=== PATIENT | female | born 1995 | race Caucasian/White ===

== ENCOUNTER 2017-08-28 18:52 | Emergency (ER) | payer OTHER ==
[~2017-08-28] VITALS: Ht 154.9 cm; Wt 78.2 kg
[2017-08-28] MEDS ORDERED: ALBUTEROL/IPRATROPIUM 2.5MG/0.5MG, 3 ML ONE (19:35)
[2017-08-28] MEDS ORDERED: ALBUTEROL SULFATE 2.5 MG/3 ML NPPB ONE (20:00)
[2017-08-28 20:17] VITALS: BP 119/74
== END 2017-08-28 20:19 | disposition home or self-care (01) ==
LOC: ED 20:15
DX: J20.8 Acute bronchitis due to other specified organisms (principal)
CPT/HCPCS: 71020; 94640; 99284; J7512

== ENCOUNTER 2018-10-18 19:01 | Emergency (ER) | payer SELFPAY ==
[~2018-10-18] VITALS: Ht 154.9 cm; Wt 75.0 kg
[2018-10-18 19:08] VITALS: BP 121/70
[2018-10-18] MEDS ORDERED: HYDROcodone/APAP 5/325 TABLET ONE (19:40)
[2018-10-18] MEDS ORDERED: KETOROLAC 30 MG/1 ML ONE (19:40)
[2018-10-18] MEDS ORDERED: DIAZEPAM 5 MG TABLET ONE (19:40)
[2018-10-18] MEDS ORDERED: HYDROcodone/APAP 5/325 TABLET PO ONE (20:00)
[2018-10-18] MEDS ORDERED: DIAZEPAM 5 MG TABLET PO ONE (20:00)
[2018-10-18] MEDS ORDERED: KETOROLAC 30 MG/1 ML IM ONE (20:00)
== END 2018-10-18 20:53 | disposition home or self-care (01) ==
LOC: ED 19:37
DX: S93.402A Sprain of unspecified ligament of left ankle, initial encounter (principal); X50.1XXA Overexertion from prolonged static or awkward postures, initial encounter; Y93.89 Activity, other specified; Y92.89 Other specified places as the place of occurrence of the external cause; Y99.8 Other external cause status
CPT/HCPCS: 29515; 73610; 73630; 96372; 99283; J1885

== ENCOUNTER 2020-11-29 18:17 | Inpatient (IN) | payer OTHER ==
[~2020-11-29] VITALS: Ht 154.9 cm; Wt 81.4 kg
[2020-11-29 18:29] VITALS: BP 97/60
[2020-11-29] MEDS ORDERED: PREN1TAB60 PO (18:53)
[2020-11-29 20:00] VITALS: BP 95/58
[2020-11-29] MEDS: LACTATED RINGERS 1,000 ML IV SCH (20:00)
[2020-11-29] MEDS ORDERED: CALCIUM CARBONATE 500 MG TAB.CHEW PO PRN (20:30)
[2020-11-29] MEDS ORDERED: SODIUM CITRATE/CITRIC ACID 30 ML UDC PO PRN (20:30)
[2020-11-29] MEDS: D5%-LACTATED RINGERS 1,000 ML IV SCH (20:30)
[2020-11-29] MEDS ORDERED: OXYTOCIN 30U/ 0.9% NaCL 500ML 500 ML IV ONE (20:30)
[2020-11-29] MEDS ORDERED: TERBUTALINE 1 MG/ML, 1ML IVPush PRN (20:30)
[2020-11-29] MEDS ORDERED: TERBUTALINE 1 MG/ML, 1ML SQ PRN (20:30)
[2020-11-29] MEDS ORDERED: METOCLOPRAMIDE 5 MG/ML, 2ML IVPush PRN (20:30)
[2020-11-29] MEDS ORDERED: FENTANYL PF 100 MCG/2ML IV PRN (20:30)
[2020-11-29] MEDS ORDERED: MISOPROSTOL 25 MCG TABLET ONE (20:37)
[2020-11-29] MEDS ORDERED: NEWBORN KIT ONE (20:37)
[2020-11-29] MEDS ORDERED: LIDOCAINE 1%, 20ML ONE (20:37)
[2020-11-29] MEDS ORDERED: OXYTOCIN 30U/ 0.9% NaCL 500ML 500 ML ONE (20:38)
[2020-11-29] MEDS ORDERED: MISOPROSTOL 200 MCG TABLET ONE (20:38)
[2020-11-29] MEDS: MISOPROSTOL 25 MCG TABLET VG PRN (20:53)
[2020-11-29 20:56] LABS: BASOPHILS % (AUTO) 1 % (0-1); EOSINOPHILS % (AUTO) 0 % (1-7); LYMPHOCYTES % (AUTO) 22 % (22-44); MEAN CORPUSCULAR HEMOGLOBIN 32.3 pg (27.0-34.8); MEAN CORPUSCULAR HGB CONC 34.6 g/dL (32.4-35.8); MEAN PLATELET VOLUME 9.3 fL (7.4-10.4); MONOCYTES % (AUTO) 6 % (2-9); NEUTROPHILS % (AUTO) 71 % (42-75); PLATELET COUNT 211 x10^3/uL (130-400); RED BLOOD COUNT 4.14 x10^6/uL (3.82-5.3); RED CELL DISTRIBUTION WIDTH 12.7 % (9.6-15.2)
[2020-11-29 21:02] LABS: MD NO
[2020-11-30] MEDS ORDERED: MISOPROSTOL 25 MCG TABLET ONE (01:02)
[2020-11-30] MEDS: MISOPROSTOL 25 MCG TABLET VG PRN (01:05)
[2020-11-30] MEDS: D5%-LACTATED RINGERS 1,000 ML IV SCH ×3 (04:30→23:55)
[2020-11-30] MEDS: LACTATED RINGERS 1,000 ML IV SCH ×3 (04:30→22:21)
[2020-11-30] MEDS ORDERED: OXYTOCIN 30U/ 0.9% NaCL 500ML 500 ML IV PRN (06:30)
[2020-11-30] MEDS ORDERED: FENTANYL PF 100 MCG/2ML ONE ×2 (14:12→15:17)
[2020-11-30] MEDS: FENTANYL PF 100 MCG/2ML IVPush PRN ×2 (14:15→15:21)
[2020-11-30] MEDS ORDERED: ONDANSETRON 2MG/ML, 2ML ONE ×2 (15:08→20:53)
[2020-11-30] MEDS: ONDANSETRON 2MG/ML, 2ML IVPush PRN ×2 (15:11→20:55)
[2020-11-30] MEDS ORDERED: BUPIVACAINE 0.25% ONE (16:04)
[2020-11-30] MEDS ORDERED: FENTANYL/BUPIV./NS/PF 250 ML EPIDCONT ONE (16:05)
[2020-11-30] MEDS ORDERED: FENTANYL/BUPIV./NS/PF 250 ML EPIDCONT SCH (17:00)
[2020-11-30] MEDS ORDERED: LACTATED RINGERS 1,000 ML IV SCH (17:00)
[2020-11-30] MEDS ORDERED: LACTATED RINGERS 1,000 ML IVBOLUS PRN (17:00)
[2020-11-30] MEDS: EPHEDRINE 50 MG/ML, 1ML IVPush PRN ×2 (17:04→23:50)
[2020-11-30 19:16] VITALS: BP 93/54
[2020-12-01] MEDS ORDERED: OXYTOCIN 30U/ 0.9% NaCL 500ML 500 ML ONE (07:07)
[2020-12-01] MEDS ORDERED: ACETAMINOPHEN 325 MG TABLET ONE (07:07)
[2020-12-01] MEDS ORDERED: ACETAMINOPHEN 500 MG TABLET ONE (07:12)
[2020-12-01] MEDS: AMPICILLIN 2 GM in SODIUM CHLORIDE 0.9% 100 ML IV SCH ×3 (07:18→19:27)
[2020-12-01] MEDS ORDERED: PHARMACOKINETIC MONITORING MC PRN (07:30)
[2020-12-01] MEDS ORDERED: ACETAMINOPHEN 325 MG TABLET PO PRN ×2 (07:30→08:00)
[2020-12-01] MEDS ORDERED: PHARMACOKINETIC CONSULTATION MC ONE (07:30)
[2020-12-01] MEDS ORDERED: GENTAMICIN PER PHARMACY MC PRN (07:30)
[2020-12-01] MEDS ORDERED: ACETAMINOPHEN 500 MG TABLET PO PRN (07:30)
[2020-12-01] MEDS: GENTAMICIN 100 MG in SODIUM CHLORIDE 0.9% 50 ML IV SCH ×3 (07:44→23:39)
[2020-12-01 07:56] LABS: AMPHETAMINE SCREEN, URINE Negative (Negative); BARBITURATE SCREEN, URINE Negative (Negative); BENZODIAZEPINE SCREEN, URINE Negative (Negative); CANNABINOID SCREEN, URINE Negative (Negative); COCAINE SCREEN, URINE Negative (Negative); METHADONE SCREEN, URINE Negative (Negative); OPIATE SCREEN, URINE Negative (Negative)
[2020-12-01] MEDS ORDERED: RHOGAM FROM BLOOD BANK 1 NOTE EA IM/IV ONE (08:00)
[2020-12-01] MEDS ORDERED: MAGNESIUM HYDROXIDE 8%, 30ML UDC PO PRN (08:00)
[2020-12-01] MEDS: OXYTOCIN 30U/ 0.9% NaCL 500ML 500 ML IV SCH ×2 (08:00→18:00)
[2020-12-01] MEDS ORDERED: DIPH,PERTUSS(ACELL),TET VAC/PF NC IM-VACC PRN (08:00)
[2020-12-01] MEDS ORDERED: ONDANSETRON 2MG/ML, 2ML IV PRN (08:00)
[2020-12-01] MEDS ORDERED: SIMETHICONE 80 MG CHEW TAB PO PRN (08:00)
[2020-12-01] MEDS ORDERED: OXYcodone/APAP 5/325MG TABLET PO PRN ×2 (08:00)
[2020-12-01] MEDS ORDERED: MISOPROSTOL 200 MCG TABLET PR PRN (08:00)
[2020-12-01] MEDS ORDERED: CALCIUM CARBONATE 500 MG TAB.CHEW PO PRN (08:00)
[2020-12-01] MEDS: PRENATAL VIT/IRON/FA 1 EACH TABLET PO SCH (09:00)
[2020-12-01] MEDS ORDERED: IBUPROFEN 600 MG TABLET ONE (09:35)
[2020-12-01] MEDS: IBUPROFEN 600 MG TABLET PO PRN ×3 (10:36→23:57)
[2020-12-01 11:00] VITALS: BP 107/71
[2020-12-01 15:45] VITALS: BP 92/54
[2020-12-01 16:17] LABS: MEAN CORPUSCULAR HEMOGLOBIN 32.1 pg (27.0-34.8); MEAN CORPUSCULAR HGB CONC 34.4 g/dL (32.4-35.8); MEAN PLATELET VOLUME 9.4 fL (7.4-10.4); PLATELET COUNT 172 x10^3/uL (130-400); RED CELL DISTRIBUTION WIDTH 12.9 % (9.6-15.2)
[2020-12-01 17:00] LABS: MD YES
[2020-12-01 17:01] LABS: BANDS%(MANUAL) 6 % (0-7); LYMPH#(MANUAL) 1.05 x10^3/uL (1-3.4); LYMPHS% (MANUAL) 3 % (22-44); METAMYELOCYTES# (MANUAL) 0.35 x10^3/uL (0-0); METAMYELOCYTES% (MANUAL) 1 % (0-1); MONOS#(MANUAL) 1.05 x10^3/uL (0.3-2.7); MONOS% (MANUAL) 3 % (2-9); SEG#(MANUAL) 30.45 x10^3/uL (1.8-6.8); SEGS% (MANUAL) 87 % (42-75)
[2020-12-01 17:02] LABS: MICROCYTOSIS 1+
[2020-12-01 17:03] LABS: <PLATELET ESTIMATE> ADEQUATE; <PLT MORPHOLOGY> NORMAL PLT MORPH
[2020-12-01] MEDS: DOCUSATE 100 MG CAPSULE PO PRN (19:27)
[2020-12-01 19:40] VITALS: BP 108/58
[2020-12-01 23:45] VITALS: BP 92/46
[2020-12-02] MEDS: AMPICILLIN 2 GM in SODIUM CHLORIDE 0.9% 100 ML IV SCH ×2 (01:27→08:11)
[2020-12-02] MEDS: OXYTOCIN 30U/ 0.9% NaCL 500ML 500 ML IV SCH (04:00)
[2020-12-02 05:00] VITALS: BP 92/45
[2020-12-02 07:30] VITALS: BP 93/58
[2020-12-02] MEDS: GENTAMICIN 100 MG in SODIUM CHLORIDE 0.9% 50 ML IV SCH (07:30)
[2020-12-02] MEDS: ACETAMINOPHEN 325 MG TABLET PO PRN ×3 (09:41→19:53)
[2020-12-02] MEDS: IBUPROFEN 600 MG TABLET PO PRN ×2 (09:41→15:42)
[2020-12-02] MEDS: PRENATAL VIT/IRON/FA 1 EACH TABLET PO SCH (09:41)
[2020-12-02 19:00] VITALS: BP 105/66
[2020-12-02] MEDS: DOCUSATE 100 MG CAPSULE PO PRN (19:17)
[2020-12-02] MEDS ORDERED: MEASLES,MUMPS&RUBELLA VACC/PF 0.5 ML SQ-VACC ONE (19:30)
[2020-12-03] MEDS: IBUPROFEN 600 MG TABLET PO PRN (03:23)
[2020-12-03] MEDS ORDERED: IBUP-1222 PO (06:51)
[2020-12-03 07:50] VITALS: BP 104/66
[2020-12-03] MEDS: PRENATAL VIT/IRON/FA 1 EACH TABLET PO SCH (09:00)
== END 2020-12-03 13:00 | disposition home or self-care (01) | DRG 805 ==
LOC: LDOP 18:17 → LDIP 19:22 → 2NW 12-01 11:00
PROVIDERS: ADMIT Obstetrics & Gynecology; ATTEND Obstetrics & Gynecology
PROC: 10E0XZZ Delivery of Products of Conception, External Approach (ICD-10-PCS; principal; 2020-12-01)
PROC: 3E0P7VZ Introduction of Hormone into Female Reproductive, Via Natural or Artificial Opening (ICD-10-PCS; 2020-12-01)
PROC: 10H07YZ Insertion of Other Device into Products of Conception, Via Natural or Artificial Opening (ICD-10-PCS; 2020-12-01)
PROC: 3E0R3BZ Introduction of Anesthetic Agent into Spinal Canal, Percutaneous Approach (ICD-10-PCS; 2020-12-01)
PROC: 00HU33Z Insertion of Infusion Device into Spinal Canal, Percutaneous Approach (ICD-10-PCS; 2020-12-01)
DX: O48.0 Post-term pregnancy (principal); O41.1230 Chorioamnionitis, third trimester, not applicable or unspecified; Z37.0 Single live birth; Z3A.40 40 weeks gestation of pregnancy
CPT/HCPCS: 36415; J7121; 80307; 84112; 85025; 86592; 86850; 86900; G0378; J0290; J2405; J3010; J1580; J2590; J7120